=== PATIENT | male | born 1950 | race Caucasian/White ===

== ENCOUNTER 2021-11-27 10:11 | Emergency (ER) | payer OTHER, SELFPAY ==
[2021-11-27 10:41] VITALS: BP 194/72; PULSE 79; RESP 15; O2SAT 96; BMI 36.5
[2021-11-27 11:10] VITALS: BP 161/72; PULSE 75; RESP 18; O2SAT 94
--- NOTE | 2021-11-27 11:21 | XR_ITS ---
WS: [id number] XR chest 1V portable [id number] REASON FOR EXAM: sob FINDINGS: Heart and mediastinum are within normal limits. Calcified granulomatous disease in both hemithoraces. No acute pulmonary parenchymal or pleural abnormality. Mild to moderate changes of degenerative spondylosis in the mid and lower thoracic spine. XR/XR chest 1V portable [id number] IMPRESSION: No acute chest abnormality.
--- NOTE | 2021-11-27 11:21 | ED_ITS ---
HPI - Recheck/Abnormal Lab/Rx General: Chief Complaint: Recheck/Abnormal Lab/Rx Stated Complaint: high bp, high BS Time Seen by Provider: 11/27/21 10:12 Source: patient Mode of arrival: ambulatory Limitations: no limitations History of Present Illness: Patient is a nice 71-year-old male who presents [facility] ED [facility]. Patient states he recently moved to the area and had an [facility] the [facility]. [facility] checked [facility] and he thinks systolic readings were in the 160s?170s. There was report of patient feeling flushed so they sent him here for evaluation. During my initial assessment he tells me he does have a history of hypertension. He states he takes medications for this but does not remember the name of them. He states the [facility]. He thinks he probably has refills of these at home as he has two unopened boxes at home. BP during my initial assessment is 150s/70s. Patient is not having any chest pain. He does not feel hot or flushed currently. When asked if he has any physical complaints at this time he tells me that he has had intermittent pains to all 4 of his extremities for several months now. He feels like the extremities feel tight. Has not noticed any color or temperature changes. Patient also states that sometimes he will awaken from sleep feeling short of breath. He does not have any shortness of breath currently or at baseline. Patient denies orthopnea. He denies any significant extremity swelling. Patient reports a negative stress test within the past year. MD complaint: other ([facility]) Review of Systems Const: Denies: fever(s), chills, body aches, fatigue or malaise Eyes: Denies: change in vision, blurry vision or photophobia Card: Denies: chest pain, palpitations, irregular heart rhythm, edema, lightheadedness, syncope, pre-syncope, dyspnea on exertion, orthopnea, leg pain with exertion or acrocyanosis Resp: Reports: dyspnea; Denies: productive cough, non-productive cough, wheezing, hemoptysis or chest congestion GI: Denies: abdominal pain (intermittent; none currently), nausea, vomiting, diarrhea or change in bowel habits : Denies: flank pain, difficulty urinating, dysuria or hematuria Musc: Reports: extremity pain; Denies: neck pain, back pain, extremity swelling, joint pain, joint swelling, joint redness, joint warmth, joint stiffness or limited range of motion Skin/Breast: Denies: rash Neuro: Denies: headache(s), numbness in extremities, weakness in extremities, sensory changes, difficulty walking, frequent falls, dizziness, confusion or difficulty communicating thoughts PFSH ED PFSH: Medical History (Updated 11/27/21 @ 12:27 by EUSEBIA Hanna) Diabetes mellitus Hypertension Physical Exam Const: COMMON NORMALS: no acute distress, patient oriented x3, no limitations and alert GENERAL APPEARANCE: cooperative NUTRITIONAL APPEARANCE: obese ORIENTATION/CONSCIOUSNESS: Yes awake, Yes oriented to person, Yes oriented to place and Yes oriented to time HENMT: COMMON NORMALS: normocephalic and atraumatic HEAD & SCALP: normocephalic and atraumatic Resp: COMMON NORMALS: normal respiratory effort and clear to auscultation bilaterally AUSCULTATION: clear to auscultation bilaterally Cardio: COMMON NORMALS: regular rate and regular rhythm RATE: regular rate RHYTHM: regular rhythm GI: COMMON NORMALS: Normal to inspection, nondistended, normoactive bowel sounds present, Soft to palpation, non-tender, No hepatosplenomegaly present and no masses PALPATION: Yes Soft to palpation and Yes No hepatosplenomegaly present : COMMON NORMALS: Yes no CVA tenderness BLADDER/KIDNEY EXAM: Yes no CVA tenderness Back/Pelvis: COMMON NORMALS: no CVA tenderness Extremity: COMMON NORMALS: normal to inspection, full ROM, capillary refill normal, no joint enlargement, no clubbing, cyanosis or edema, no calf tenderness and no pedal edema GENERAL: Yes normal exam except as noted Neuro: OMAR COMA SCALE: document GCS findings Omar coma scale eye opening: Spontaneous [place] coma scale verbal response: Orientated Omar coma scale motor response: Obey commands [place] coma scale total score: 15 COMMON NORMALS: patient oriented x3, moves all extremities, no focal motor deficits and no sensory deficits noted SENSORIUM/ORIENTATION: Yes alert, Yes oriented to person, Yes oriented to place and Yes oriented to time Skin: COMMON NORMALS: no rashes or lesions noted GENERAL SKIN EXAM: no rashes or lesions noted Course Vital Signs: Vital signs: Vital Signs Pulse Rate 75 11/27/21 11:10 Respiratory Rate 18 11/27/21 11:10 Blood Pressure 161/72 11/27/21 11:10 Pulse Oximetry 94 11/27/21 11:10 MDM - Recheck/Abnormal Lab/Rx Medical Decision Making Patient here following an elevated blood pressure reading while at the [place] clinic. Upon arrival and during my initial assessment blood pressure 150s/70s. Not complain of feeling hot or flushed or chest pains. No headache or visual changes. He is not currently short of breath although did mention sometimes he wakes up at night feeling short of breath. CXR is normal. BNP is normal. Could be secondary to sleep apnea related to his obesity status. He had some chronic complaints of intermittent pains to his extremities. I do not see anything on his physical exam today would make me concerned for any type of emergent process. Patient states he has been taking his diabetic medications as prescribed. Recommend he continue checking his blood sugars often and keeping a log of this. Also keeping a log of his blood pressures so that has diabetic and hypertensive medications can be adjusted if needed through the [place]. Lab Data : 11/27/21 11:15 11/27/21 11:15 Radiology Impressions Chest X-Ray 11/27/21 11:21 IMPRESSION: No acute chest abnormality. Laboratory Results WBC 5.6 10^3/uL (4.0-10.0) 11/27/21 11:15 RBC 5.02 10^6/uL (4.1-5.3) 11/27/21 11:15 Hgb 15.2 g/dL (11.7-16.6) 11/27/21 11:15 Hct 45.1 % (42.0-52.0) 11/27/21 11:15 MCV 89.8 fl (80-94) 11/27/21 11:15 MCH 30.3 pg (28.0-34.0) 11/27/21 11:15 MCHC 33.7 g/dL (30.0-36.0) 11/27/21 11:15 RDW 13.2 % (12.1-15.1) 11/27/21 11:15 Plt Count 218 10^3/cmm (130-400) 11/27/21 11:15 MPV 10.4 fL (7.4-10.4) 11/27/21 11:15 Neut % (Auto) 54.3 % 11/27/21 11:15 Lymph % (Auto) 31.3 % 11/27/21 11:15 Cottle % (Auto) 7.9 % 11/27/21 11:15 Eos % (Auto) 5.0 % 11/27/21 11:15 Baso % (Auto) 1.3 % 11/27/21 11:15 Neut # (Auto) 3.05 10^3/uL (1.8-7.7) 11/27/21 11:15 Lymph # (Auto) 1.8 10^3/uL (0.8-4.8) 11/27/21 11:15 Cottle # (Auto) 0.4 10^3/uL (0.2-0.9) 11/27/21 11:15 Eos # (Auto) 0.3 10^3/uL (0.0-0.8) 11/27/21 11:15 Baso # (Auto) 0.1 10^3/uL (0.0-0.1) 11/27/21 11:15 Nucleated RBC % (auto) 0 % 11/27/21 11:15 Nucleated RBCs # 0.0 /100WBC 11/27/21 11:15 Sodium 136 mmol/L (136-145) 11/27/21 11:15 Potassium 4.2 mmol/L (3.5-5.1) 11/27/21 11:15 Chloride 101 mmol/L (98-107) 11/27/21 11:15 Carbon Dioxide 24 mmol/L (22-29) 11/27/21 11:15 Anion Gap 15.2 (5-19) 11/27/21 11:15 BUN 18 mg/dL (8-23) 11/27/21 11:15 Creatinine 0.7 mg/dL (0.7-1.2) 11/27/21 11:15 GFR Calculation 111.5 mL/min (90-130) 11/27/21 11:15 Glucose 274 mg/dL (65-115) H 11/27/21 11:15 Calculated Osmolality 294 mOsm/kg (285-295) 11/27/21 11:15 Calcium 9.8 mg/dL (8.5-10.5) 11/27/21 11:15 Total Bilirubin 0.3 mg/dL (0.15-1.2) 11/27/21 11:15 AST 25 U/L (0-40) 11/27/21 11:15 ALT 28 U/L (0-41) 11/27/21 11:15 Alkaline Phosphatase 74 IU/L (40-130) 11/27/21 11:15 NT-Pro-B Natriuret Pep 5 pg/mL (0-125) 11/27/21 11:15 Total Protein 7.6 g/dL (6.6-8.7) 11/27/21 11:15 Albumin 4.4 g/dL (3.5-5.2) 11/27/21 11:15 Globulin 3.2 g/dL (1.3-4.6) 11/27/21 11:15 Urine Color Yellow (Yellow) 11/27/21 11:55 Urine Appearance Clear (CLEAR) 11/27/21 11:55 Urine pH 5 (5-7) 11/27/21 11:55 Ur Specific [place] 1.020 (1.005-1.030) 11/27/21 11:55 Urine Protein Neg (Negative) 11/27/21 11:55 Urine Glucose (UA) 4+ (Normal) H 11/27/21 11:55 Urine Ketones 1+ (Negative) H 11/27/21 11:55 Urine Blood Neg (Negative) 11/27/21 11:55 Urine Nitrate Negative (Negative) 11/27/21 11:55 Urine Bilirubin Neg (Negative) 11/27/21 11:55 Urine Urobilinogen Norm mg/dL (Negative) 11/27/21 11:55 Ur Leukocyte Esterase Negative (Negative) 11/27/21 11:55 Discharge Plan Discharge Patient Disposition: Home Clinical Impression: Diabetes mellitus, Hypertension Condition: Stable Discharge Orders: Discharge ED (Routine); Ordered 11/27/21 Ordered By: Brittny Self Coding Level of Care Code ED Turpentine Farmer for Chg Fwd Exam Comprehensive
[2021-11-27 11:28] LABS: Basophils # 0.1 10^3/uL (0.0-0.1); Basophils % 1.3 %; Eosinophils # 0.3 10^3/uL (0.0-0.8); Hematocrit 45.1 % (42.0-52.0); Hemoglobin 15.2 g/dL (11.7-16.6); Lymphocytes # 1.8 10^3/uL (0.8-4.8); Lymphocytes % 31.3 %; Mean Corpuscular HGB Conc 33.7 g/dL (30.0-36.0); Mean Corpuscular Hemoglobin 30.3 pg (28.0-34.0); Mean Corpuscular Volume 89.8 fl (80-94); Mean Platelet Volume 10.4 fL (7.4-10.4); Monocytes # 0.4 10^3/uL (0.2-0.9); Monocytes % 7.9 %; Neutrophils # 3.05 10^3/uL (1.8-7.7); Neutrophils % 54.3 %; Nucleated Red Blood Cells % 0 %; Platelet Count 218 10^3/cmm (130-400); Red Blood Count 5.02 10^6/uL (4.1-5.3); Red Cell Distribution Width 13.2 % (12.1-15.1); White Blood Count 5.6 10^3/uL (4.0-10.0)
[2021-11-27 12:06] LABS: Add Urine Microscopic? NO; Charge for UA Resulting for Rev
[2021-11-27 12:19] LABS: Urine Appearance Clear (CLEAR); Urine Color Yellow (Yellow)
[2021-11-27 12:21] LABS: Bilirubin Urine Neg (Negative); Blood Urine Neg (Negative); Glucose Urine UA 4+ (Normal); Ketones Urine 1+ (Negative); Leukocyte Esterase Urine Negative (Negative); Nitrate Urine Negative (Negative); Protein Urine Neg (Negative); Urobilinogen Urine Norm (Negative); pH Urine 5 (5-7)
[2021-11-27 12:22] LABS: Alanine Aminotransferase 28 U/L (0-41); Albumin Level 4.4 g/dL (3.5-5.2); Alkaline Phosphatase 74 IU/L (40-130); Anion Gap 15.2 (5-19); Aspartate Amino Transferase 25 U/L (0-40); Blood Urea Nitrogen 18 mg/dL (8-23); Calcium 9.8 mg/dL (8.5-10.5); Carbon Dioxide 24 mmol/L (22-29); Chloride 101 mmol/L (98-107); Globulin 3.2 g/dL (1.3-4.6); Glomerular Filtration Rate 111.5 mL/min (90-130); Glucose 274 mg/dL (65-115); NT Pro B Type Natriuretic Pept 5 pg/mL (0-125); Osmolality Calculated 294 mOsm/kg (285-295); Potassium 4.2 mmol/L (3.5-5.1); Sodium 136 mmol/L (136-145); Total Bilirubin 0.3 mg/dL (0.15-1.2); Total Protein 7.6 g/dL (6.6-8.7)
== END 2021-11-27 12:59 | disposition home or self-care (01) ==
PROVIDERS: Emergency Provider Physician Assistant
DX: I10 Essential (primary) hypertension (principal); E11.9 Type 2 diabetes mellitus without complications
CPT/HCPCS: 71045; 80053; 81003; 83880; 85025; 99283

== ENCOUNTER → 2022-03-06 12:03 | Outpatient (BNVA) | payer OTHER, SELFPAY | PROVIDERS: PCP Nurse Practitioner; Referring Provider Nurse Practitioner; Visit Provider Internal Medicine | DX: Z79.4 Long term (current) use of insulin (principal); Z79.84 Long term (current) use of oral hypoglycemic drugs; E11.9 Type 2 diabetes mellitus without complications; E78.2 Mixed hyperlipidemia; E03.9 Hypothyroidism, unspecified | CPT/HCPCS: 99204 ==

== ENCOUNTER → 2022-07-05 10:23 | Outpatient (BNVA) | payer OTHER, SELFPAY | PROVIDERS: PCP Nurse Practitioner; Visit Provider Internal Medicine | DX: E11.9 Type 2 diabetes mellitus without complications (principal); E03.9 Hypothyroidism, unspecified; E78.2 Mixed hyperlipidemia; I10 Essential (primary) hypertension; Z79.4 Long term (current) use of insulin | CPT/HCPCS: 36415; 80053; 80061; 82044; 84439; 84443; 84480; 99214 ==

== ENCOUNTER → 2022-11-14 07:26 | Outpatient (BNVA) | payer OTHER, SELFPAY | PROVIDERS: PCP Nurse Practitioner; Visit Provider Internal Medicine | DX: E11.9 Type 2 diabetes mellitus without complications (principal); E03.9 Hypothyroidism, unspecified; E78.2 Mixed hyperlipidemia; I10 Essential (primary) hypertension; Z79.4 Long term (current) use of insulin; Z79.890 Hormone replacement therapy; Z79.84 Long term (current) use of oral hypoglycemic drugs | CPT/HCPCS: 36415; 80053; 80061; 82044; 83036; 84439; 84443; 84480; 99214 ==

== ENCOUNTER → 2022-12-03 14:01 | Outpatient (BNVA) | payer OTHER, SELFPAY | PROVIDERS: PCP Nurse Practitioner; Visit Provider Internal Medicine Cardiovascular Disease | DX: R07.9 Chest pain, unspecified (principal); E78.2 Mixed hyperlipidemia; I10 Essential (primary) hypertension; E11.9 Type 2 diabetes mellitus without complications; E03.9 Hypothyroidism, unspecified; R06.09 Other forms of dyspnea; Z79.4 Long term (current) use of insulin | CPT/HCPCS: 93005; 99204 ==

== ENCOUNTER 2022-12-27 09:19 | Outpatient (CLI) | payer OTHER, SELFPAY ==
--- NOTE | 2022-12-27 | ECG_ITS ---
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 Interpretive Statements NAME OF STUDY: EXERCISE SESTAMIBI STRESS TEST INDICATION: [Chest Pain, ] EXERCISE DATA: The patient was exercised by Elder protocol. Baseline heart rate was 70 beats per minute. Baseline blood pressure was 162/92 millimeters of mercury. Target heart rate was 126 beats per minute. Maximum heart rate achieved was 143 which was 113% of the target heart rate. Maximum blood pressure was 259/72 millimeters of mercury. Total exercise time was 6 minutes 47 seconds. Maximum METs achieved was 10.2. The reason for ending the test was maximal effort achieved. The patient complained of shortness of breath during the stress test, which then resolved at the end of the test. ELECTROCARDIOGRAM: BASELINE: Showed sinus rhythm, normal axis, no significant ST-T changes at the baseline noted. [] EXERCISE: At the peak exercise level, [] [address] depressions were noted in inferior leads. RECOVERY: During the recovery period, heart rate dropped appropriately. Persistent ST depressions were noted in inferior leads during initial part of recovery that resolved later. PVCs seen in recovery [] CONCLUSION: 1. Exercise capacity is good 2. Heart rate response was appropriate 3. Blood pressure response was hypertensive 4. Symptoms not suggestive of ischemia. 5. Electrocardiogram portion of the stress test indicative of ischemia, imaging portion needs to be correlated. 6. Nuclear scan will be documented separately. Electronically Signed On 01-10-2023 14:31:46 CDT by Pb Cooper M.D. [id number]
[2022-12-27 09:30] VITALS: BMI 34.4
--- NOTE | 2022-12-27 09:34 | NMCV_ITS ---
NM ishan perf SPECT r/s* [id number] Oliver Boyd Age: 72 Gender: M : 1950 Exam Date: 12/27/2022 09:34 Ordering Phys: Shirley Terry MD ([email or web address]) Technologist: ASH Ha Exam Location: [facility] Indications: CORONARY ANGIOPLASTY STATUS STRESS TEST Please see separate stress test report in [facility] for full findings IMAGE PROTOCOL Rest/Stress 1 Exercise Day Radiopharmaceutical Dose (mCi) Administration Site Administered by Rest: Tc-99m 10.8 IV Flakito Cole, CHAIR PAD MAKER Sestamibi Stress:Tc-99m 32.8 IV Flakito Cole, CHAIR PAD MAKER Sestamibi Rest: 27-Dec-2022 60 Discovery 630 Stress: 27-Dec-2022 30 Discovery 630 Radiopharmaceutical was injected at 90 % maximum heart rate. Images obtained in supine and prone position. SPECT RESULTS Technical Quality: Excellent Raw Data Analysis: Normal Image Corrections: No attenuation or motion correction applied Summed Stress Score: 1 Summed Rest Score: 2 Summed Difference Score: 0 PERFUSION FINDINGS SPECT images demonstrate homogeneous tracer distribution throughout the myocardium. FUNCTIONAL RESULTS (calculated via Gated SPECT) Stress Image LV EF (%): 70 Stress EDV (mL):98 TID: 0.84 Stress ESV (mL):29 FUNCTIONAL FINDINGS: There is normal left ventricular systolic function. IMPRESSIONS 1. Normal myocardial perfusion imaging with no evidence of ischemia. 2. LV systolic function is normal. Pb Cooper MD (Electronically Signed) Final Date: 28 December 2022 11:46 S
[2022-12-27 11:25] VITALS: BP 170/50; PULSE 96
== END 2022-12-27 09:20 | disposition home or self-care (01) ==
LOC: CDL 09:21
PROVIDERS: PCP Nurse Practitioner; Visit Provider Internal Medicine Cardiovascular Disease
DX: R07.9 Chest pain, unspecified (principal); Z98.62 Peripheral vascular angioplasty status
CPT/HCPCS: 36415; 78452; 93017; A9500

== ENCOUNTER → 2023-03-06 08:09 | Outpatient (BNVA) | payer OTHER, SELFPAY | PROVIDERS: PCP Nurse Practitioner; Visit Provider Nurse Practitioner Family | DX: R07.9 Chest pain, unspecified (principal); I10 Essential (primary) hypertension | CPT/HCPCS: 99213 ==

== ENCOUNTER 2023-03-27 14:35 | Outpatient (CLI) | payer OTHER, SELFPAY ==
--- NOTE | 2023-03-27 | US_ITS ---
WS: [id number] THYROID ULTRASOUND HISTORY: Elevated TSH COMPARISON: None available. Right lobe: 2.0 cm x 2.3 cm x 4.3 cm (w x ap x l). Volume: 10.0 cm3. Mildly enlarged thyroid. Thyroid is very heterogeneous with variable echogenicity throughout. Nearly isoechoic nodule in the mid gland measures 1.6 x 1.1 x 1.5 cm. Mild peripheral increased vascularity. Similar echogenicity to the adjacent gland. The side actually may be 2 separate nodules closely asso ciated with each other. Left lobe: 1.6 cm x 2.1 cm x 3.9 cm (w x ap x l). Volume: 6.9 cm3. Normal sized gland. Heterogeneous gland with fibrous septa. No mass identified or increased vasculari ty. Isthmus: 0.4 cm. IMPRESSION: 1. TI-RADS 3 RIGHT thyroid nodule. Recommend follow-up ultrasound in 1 year. Nodules only mildly susp icious. As recommended by the TI-RADS criteria FNA can be performed if the nodule is is equal or grea ter than 2.5 cm. 2. Bilateral heterogeneous thyroid. Probably due to chronic Tu's thyroiditis.
--- NOTE | 2023-03-27 14:40 | CT_ITS ---
WS: [id number] CT chest w con* [id number] HISTORY: STRESS TEST SHOWED POSSIBLE NODULE ON LUNG TECHNIQUE: Axial imaging performed through the thorax. Coronal and sagittal reformats are submitted. All CT scans at [facility] use at least one of these dose optimization techniques: automated exposure control; mA and/or kV adjustment per patient size (includes targeted exams where dose is mat ched to clinical indication); or iterative reconstruction. CONTRAST: Omnipaque 350; 100 mL IV. DLP: 744.79 mGy.cm COMPARISON: None available. Lungs and central airway: No pulmonary mass or nodule. No pneumonia. Very slight elevation of the RIG HT hemidiaphragm as compared to the LEFT. Pleura: Normal. No pleural effusion. Heart and pericardium: Heart is top normal size. Moderate amount of plaque throughout the coronary ar teries. Mediastinum and rosa maria: No mediastinum or hilar adenopathy. Vessels: Normal size aortic and pulmonary artery. No coronary artery calcifications. Chest wall and lower neck: No soft tissue masses. Upper abdomen: 2 hepatic cysts. The largest measures 17 mm in the inferior RIGHT lobe. Visualized gal lbladder is normal. Incompletely visualized low-attenuation mass in the superior pole of the LEFT kid rob. This should be reevaluated by ultrasound. Osseous structures: No destructive process. IMPRESSION: 1. No pulmonary mass or nodule. 2. No mediastinal or hilar adenopathy. 3. Moderate coronary artery plaque, greatest throughout the LEFT anterior descending. 4. Hepatic cysts. 5. Incompletely visualized low-attenuation mass LEFT kidney. This may be a cyst. Recommend ultrasound evaluation to exclude solid mass.
[2023-03-27 15:04] LABS: Blood Urea Nitrogen 19 mg/dL (8-23)
[2023-03-27] MEDS: iohexol 350 mg/mL 500 mL Btl (per mL) IV (15:07)
== END 2023-03-27 14:36 | disposition home or self-care (01) ==
PROVIDERS: PCP Nurse Practitioner; Visit Provider Nurse Practitioner
DX: R91.8 Other nonspecific abnormal finding of lung field (principal); I25.10 Atherosclerotic heart disease of native coronary artery without angina pectoris; K76.89 Other specified diseases of liver; N28.89 Other specified disorders of kidney and ureter
CPT/HCPCS: 71260; 76536; 82565; 84520; Q9967

== ENCOUNTER → 2023-04-02 09:36 | Outpatient (BNVA) | payer OTHER, SELFPAY | PROVIDERS: PCP Nurse Practitioner; Visit Provider Internal Medicine | DX: E11.9 Type 2 diabetes mellitus without complications (principal); E78.2 Mixed hyperlipidemia; E03.9 Hypothyroidism, unspecified; E04.1 Nontoxic single thyroid nodule; Z79.4 Long term (current) use of insulin; Z79.890 Hormone replacement therapy | CPT/HCPCS: 36415; 80053; 80061; 82044; 83036; 84439; 84443; 99214 ==

== ENCOUNTER → 2023-06-06 09:53 | Outpatient (BNVA) | payer OTHER, SELFPAY | PROVIDERS: PCP Nurse Practitioner; Visit Provider Podiatrist Foot & Ankle Surgery | DX: B35.1 Tinea unguium (principal); G62.9 Polyneuropathy, unspecified; E11.42 Type 2 diabetes mellitus with diabetic polyneuropathy; Z79.4 Long term (current) use of insulin | CPT/HCPCS: 11721; 99203 ==

== ENCOUNTER 2023-06-20 14:37 | Outpatient (CLI) | payer OTHER, SELFPAY ==
--- NOTE | 2023-06-20 14:45 | US_ITS ---
WS: [id number] RENAL ULTRASOUND HISTORY: MASS ON LEFT KIDNEY COMPARISON: Chest CT 03/27/2023 TECHNIQUE: 2-D and color Doppler imaging of the kidney submitted. Right kidney: 11.2 cm x 5.3 cm x 6.7 cm. Cortex: 2.0 cm Normal echogenicity with no hydronephrosis or mass. Left kidney: 11.9 cm x 5.1 cm x 6.4 cm. Cortex: 1.9 cm Normal size kidney. There is a cortical cyst in the superior pole measuring 1.7 x 2.7 x 3.3 cm. This does correspond to the indeterminate mass seen on the recent CT. No solid mass is identified. Aorta: Normal. Urinary Bladder: Normal distention. Mild prostate gland enlargement. IMPRESSION: 1. No hydronephrosis. 2. LEFT renal cyst. Cortical cyst measures 1.7 x 2.7 x 3.3 cm and corresponds to the indeterminate ma ss seen on recent CT. No follow-up necessary.
== END 2023-06-20 14:38 | disposition home or self-care (01) ==
LOC: RAD 14:37
PROVIDERS: PCP Nurse Practitioner; Visit Provider Nurse Practitioner
DX: N28.1 Cyst of kidney, acquired (principal)
CPT/HCPCS: 76770

== ENCOUNTER 2023-08-02 11:00 | Emergency (ER) | payer OTHER, SELFPAY ==
--- NOTE | 2023-08-02 11:10 | XRR_ITS ---
PROCEDURE INFORMATION: Exam: XR Chest Exam date and time: 08/02/2023 11:17 AM Age: 73 years old Clinical indication: Patient HX: SOB; Cough; Congestion; HX asthma; Diabetes TECHNIQUE: Imaging protocol: Radiologic exam of the chest. Views: 2 views. COMPARISON: CT chest w con* [id number] 03/27/2023 3:07 PM FINDINGS: Lungs: No focal consolidation. Pleural spaces: No pleural effusion. No pneumothorax. Heart/Mediastinum: No cardiomegaly. Bones/joints: No acute findings. XR/XR chest 2V* [id number] IMPRESSION: No acute findings.
--- NOTE | 2023-08-02 11:11 | W.ED.URI ---
HPI - URI/Sore Throat General: Stated Complaint: sore throat, cough, left ear pain Time Seen by Provider: 08/02/23 11:10 PFSH ED PFSH: Medical History Diabetes mellitus Hypertension Social History Smoking and tobacco/nicotine status: never used tobacco/nicotine Discharge Plan Discharge Condition: Stable Prescriptions: No Action insulin aspart U-100 [Novolog FlexPen U-100 Insulin] 100 unit/mL (3 mL) insulin pen 2 unit SUBCUT TID cholecalciferol (vitamin D3) 25 mcg (1,000 unit) capsule 25 mcg PO DAILY insulin glargine 100 unit/mL solution 35 unit SUBCUT DAILY Rx Instructions: at bedtime rosuvastatin 40 mg tablet 40 mg PO DAILY lisinopril 20 mg tablet 20 mg PO DAILY Qty: 90 3RF acetaminophen 325 mg tablet 325 mg PO QID PRN aspirin [Adult Low Dose Aspirin] 81 mg tablet,delayed release (DR/EC) 81 mg PO DAILY (DME) diabetic shoes with 3 inserts See Rx Instructions .Route .MEDSUPPLY Qty: 1 0RF Rx Instructions: As directed to the shoe guys ([facility]) Dexcom G6 Transmitter Device See Rx Instructions .ROUTE .MEDSUPPLY Qty: 3 3RF Rx Instructions: As directed levothyroxine 200 mcg tablet 200 mcg PO DAILY Qty: 90 0RF (DME) Dexcom G6 Sensor Device See Rx Instructions .ROUTE .MEDSUPPLY Qty: 9 1RF Rx Instructions: chnage every 10days Referrals: Юлия Mueller FNP [Primary Care Provider] - Coding Level of Care Code ED Boat Tester for Neving Fwalejandra
[2023-08-02 11:25] VITALS: BP 165/87; PULSE 72; RESP 16; TEMP 36.7; O2SAT 95; BMI 36.0
--- NOTE | 2023-08-02 12:01 | ED_ITS ---
HPI - URI/Sore Throat General: Chief Complaint: Upper Respiratory Infection Stated Complaint: sore throat, cough, left ear pain Time Seen by Provider: 08/02/23 11:10 Source: patient Mode of arrival: ambulatory History of Present Illness: 73-year-old male presents emergency room with complaint of generally not feeling well sore throat and little bit of left ear pain last couple of days no fever sweats or chills he has not had any diarrhea. Slight nonproductive cough. Patient is diabetic. MD elicited complaint: fever, cough and sore throat Onset (ago): day(s) Severity: mild Exacerbating factors: nothing Relieving factors: nothing Associated symptoms: Reports congestion, cough, nasal congestion, rhinorrhea and sore throat; Deny abdominal pain, change in voice, chills, chest pain, diarrhea, epistaxis, ear or mastoid pain, fever(s), headache(s), myalgias, nausea, rash, short of breath, sinus pain, stiffness or vomiting Treatments prior to arrival: none Review of Systems Const: Denies: fever(s) or chills ENMT: Reports: nasal congestion; Denies: ear or mastoid pain, epistaxis or sinus pain Card: Denies: chest pain Resp: Denies: dyspnea GI: Denies: abdominal pain, nausea, vomiting or diarrhea : Denies: dysuria, urinary frequency or urinary urgency Musc: Denies: neck pain or back pain Skin/Breast: Denies: rash Neuro: Denies: headache(s) PFS ED PFSH: Medical History Diabetes mellitus Hypertension Social History Smoking and tobacco/nicotine status: never used tobacco/nicotine Physical Exam Const: COMMON NORMALS: no acute distress GENERAL APPEARANCE: cooperative and comfortable ORIENTATION/CONSCIOUSNESS: Yes awake, Yes oriented to person, Yes oriented to place and Yes oriented to time HENMT: COMMON NORMALS: normocephalic, atraumatic, hearing grossly normal bilaterally, external ears normal, EAC's normal, TM's normal bilaterally and Normal nasal mucous membranes and turbinates present HEAD & SCALP: normocephalic and atraumatic NOSE: Normal nasal mucous membranes and turbinates present EXTERNAL EAR: Yes external ears normal EXTERNAL AUDITORY CANAL: EAC's normal TYMPANIC MEMBRANE: TM's normal bilaterally OTHER: Right mandibular posterior molar shows a significant dental caries with mild swelling of the gumline. No active drainage Neck/C-Spine: COMMON NORMALS: full ROM, no lymphadenopathy, supple and no JVD Resp: COMMON NORMALS: normal respiratory effort, No retractions, No use of accessory muscles and clear to auscultation bilaterally AUSCULTATION: clear to auscultation bilaterally Cardio: COMMON NORMALS: no JVD, regular rate, regular rhythm and No murmurs present (Cardio) RATE: regular rate RHYTHM: regular rhythm GI: COMMON NORMALS: Soft to palpation and No hepatosplenomegaly present AUSCULTATION: Yes normoactive bowel sounds PALPATION: Yes Soft to palpation, No Tenderness to palpation present (GI), No Guarding due to palpation present (GI) and Yes No hepatosplenomegaly present Extremity: COMMON NORMALS: normal to inspection, capillary refill normal, no clubbing, cyanosis or edema, no calf tenderness and no pedal edema Neuro: SENSORIUM/ORIENTATION: Yes oriented to person, Yes oriented to place and Yes oriented to time Skin: COMMON NORMALS: no rashes or lesions noted GENERAL SKIN EXAM: no rashes or lesions noted Course Vital Signs: Vital signs: Vital Signs Temperature 98.1 F 08/02/23 11:25 Pulse Rate 72 08/02/23 11:25 Respiratory Rate 16 08/02/23 11:25 Blood Pressure 165/87 08/02/23 11:25 Pulse Oximetry 95 08/02/23 11:25 Oxygen Delivery Me thod Room Air 08/02/23 11:25 MDM - URI/Sore Throat Medical Decision Making Discharge home start oral antibiotics for dental infection. Flu COVID and rapid strep all negative supportive cares follow-up with dentist for definitive care Medical Records I reviewed the patient's medical records. Lab Data I reviewed the patient's lab results. Radiology Impressions Chest X-Ray 08/02/23 11:10 IMPRESSION: No acute findings. Laboratory Results Influenza Type A Ag negative (Negative) 08/02/23 12:03 Influenza Type B Ag negative (Negative) 08/02/23 12:03 SARS-CoV-2 Ag (Rapid) negative (Negative) 08/02/23 12:03 Group A Strep Rapid Negative (Negative) 08/02/23 12:03 All radiology interpretation(s) finalized by discharge Discharge Plan Discharge Patient Disposition: Home Clinical Impression: Viral URI with cough, Dental caries Condition: Stable Prescriptions: New amoxicillin-pot clavulanate 875-125 mg tablet 1 tab PO BID Qty: 20 0RF No Action insulin aspart U-100 [Novolog FlexPen U-100 Insulin] 100 unit/mL (3 mL) insulin pen 2 unit SUBCUT TID cholecalciferol (vitamin D3) 25 mcg (1,000 unit) capsule 25 mcg PO DAILY insulin glargine 100 unit/mL solution 35 unit SUBCUT DAILY Rx Instructions: at bedtime rosuvastatin 40 mg tablet 40 mg PO DAILY lisinopril 20 mg tablet 20 mg PO DAILY Qty: 90 3RF acetaminophen 325 mg tablet 325 mg PO QID PRN aspirin [Adult Low Dose Aspirin] 81 mg tablet,delayed release (DR/EC) 81 mg PO DAILY (DME) diabetic shoes with 3 inserts See Rx Instructions .Route .MEDSUPPLY Qty: 1 0RF Rx Instructions: As directed to the shoe guys (DME) Dexcom G6 Transmitter Device See Rx Instructions .ROUTE .MEDSUPPLY Qty: 3 3RF Rx Instructions: As directed levothyroxine 200 mcg tablet 200 mcg PO DAILY Qty: 90 0RF (DME) Dexcom G6 Sensor Device See Rx Instructions .ROUTE .MEDSUPPLY Qty: 9 1RF Rx Instructions: chnage every 10days Discharge Orders: Discharge ED (Routine); Ordered 08/02/23 Ordered By: Luis Felipe Grigsby Referrals: Юлия Mueller FNP [Primary Care Provider] - Discharge Diet: Advance as tolerated Discharge Activity: Increase activity as tolerated Patient Instructions: Opioid Safety, Pain Management Activity Restrictions/Additional Instructions: Thank you for choosing [facility] for your healthcare needs today. Please realize this is an emergency room and that we are providing you with a medical screening exam and this may not be complete and all inclusive of all the testing and or work up that you may need to determine your ailment or severity of your illness. It is very important that you follow up as instructed or that you return to the Emergency Department should you have concerns or if your condition changes or worsens in any way. You are seen today complaining of upper respiratory symptoms. Swabs for flu COVID and strep were negative. On exam based on findings suspect you do have potentially infected dental carry. Started on Augmentin twice daily for 10 days follow-up with a dentist as soon as you are able. Other symptoms of your upper respiratory infection can be treated with [id number] medications as needed. Coding Level of Care Code ED Drug Room Clerk for Ezekiel Ortiz
[2023-08-02 12:30] LABS: Rapid Strep A Test Negative (Negative)
[2023-08-02 12:44] LABS: Influenza A by IFA negative (Negative); Influenza B by IFA negative (Negative); SARS Covid-2 Antigen negative (Negative)
== END 2023-08-02 13:39 | disposition home or self-care (01) ==
PROVIDERS: Internal Medicine; Emergency Provider Family Medicine; PCP Nurse Practitioner
DX: J06.9 Acute upper respiratory infection, unspecified (principal); R05.9 Cough, unspecified; K02.9 Dental caries, unspecified; Z11.52 Encounter for screening for COVID-19; Z79.82 Long term (current) use of aspirin; Z79.4 Long term (current) use of insulin; E11.9 Type 2 diabetes mellitus without complications; I10 Essential (primary) hypertension
CPT/HCPCS: 71046; 87081; 87426; 87804; 87880; 99284

== ENCOUNTER 2023-09-11 15:35 | Emergency (ER) | payer OTHER, SELFPAY ==
[2023-09-11 15:56] VITALS: BP 152/71; PULSE 74; RESP 14; TEMP 36.7; O2SAT 95; BMI 36.0
--- NOTE | 2023-09-11 16:37 | ED_ITS ---
HPI - Extremity Problem General: Chief complaint: Extremity Problem,Nontraumatic Stated complaint: foot and leg pain and redness Time Seen by Provider: 09/11/23 15:54 History of Present Illness: Patient comes in today with some complaints of discomfort to bilateral lower legs with a patchy rash. Patient appears nontoxic. Patient appears no acute distress. Patient denies any fever. Patient does have diabetes. Associated symptoms: Reports rash Review of Systems General: Reports: 10 or more systems reviewed and unremarkable except in HPI and below Skin/Breast: Reports: rash PFSH ED PFSH: Medical History Diabetes mellitus Hypertension Social History Smoking and tobacco/nicotine status: never used tobacco/nicotine Physical Exam Const: COMMON NORMALS: alert HENMT: COMMON NORMALS: normocephalic HEAD & SCALP: normocephalic Neck/C-Spine: COMMON NORMALS: full ROM Resp: COMMON NORMALS: normal respiratory effort and clear to auscultation bilaterally AUSCULTATION: clear to auscultation bilaterally Cardio: COMMON NORMALS: regular rate RATE: regular rate GI: COMMON NORMALS: Soft to palpation PALPATION: Yes Soft to palpation Extremity: COMMON NORMALS: normal to inspection Neuro: SENSORIUM/ORIENTATION: Yes alert Skin: NARRATIVE SKIN EXAM: Patient has 3 patchy areas of erythema and rough rash, small clear fluid vesicles are noted. Course Vital Signs: Vital signs: Vital Signs Temperature 98.1 F 09/11/23 15:56 Pulse Rate 74 09/11/23 15:56 Respiratory Rate 14 09/11/23 15:56 Blood Pressure 152/71 09/11/23 15:56 Pulse Oximetry 95 09/11/23 15:56 Oxygen Delivery Me thod Room Air 09/11/23 15:56 MDM - Extremity (Nontraumatic) Medical Decision Making 73-year-old male patient comes in with a itchy uncomfortable rash to the bilateral lower extremities. Patient is actually 3 patches of rash with some clear fluid vesicles. Vital signs are normal. Differential diagnosis includes not limited to stasis dermatitis, contact dermatitis, poison demetrio, neurodermatitis, dependent edema, cellulitis. I believe patient probably has some contact dermatitis he has been walking outside most likely got into some poison demetrio or other grass or weed he is sensitive to. Patient also has pets that might of brought it to him. Patient be put on some triamcinolone cream for irritation of the skin. Patient will be covered with some cephalexin for possible secondary bacterial infection. 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 Condition: Stable Prescriptions: New triamcinolone acetonide 0.1 % cream 1 applic topical BID Qty: 80 0RF cephalexin 500 mg capsule 500 mg PO BID 7 Days Qty: 14 0RF Discontinued amoxicillin-pot clavulanate 875-125 mg tablet 1 tab PO BID Qty: 20 0RF No Action insulin aspart U-100 [Novolog FlexPen U-100 Insulin] 100 unit/mL (3 mL) insulin pen 2 unit SUBCUT TID cholecalciferol (vitamin D3) 25 mcg (1,000 unit) capsule 25 mcg PO DAILY insulin glargine 100 unit/mL solution 35 unit SUBCUT DAILY Rx Instructions: at bedtime rosuvastatin 40 mg tablet 40 mg PO DAILY lisinopril 20 mg tablet 20 mg PO DAILY Qty: 90 3RF acetaminophen 325 mg tablet 325 mg PO QID PRN aspirin [Adult Low Dose Aspirin] 81 mg tablet,delayed release (DR/EC) 81 mg PO DAILY (DME) diabetic shoes with 3 inserts See Rx Instructions .Route .MEDSUPPLY Qty: 1 0RF Rx Instructions: As directed to the shoe guys (DME) Dexcom G6 Transmitter Device See Rx Instructions .ROUTE .MEDSUPPLY Qty: 3 3RF Rx Instructions: As directed levothyroxine 200 mcg tablet 200 mcg PO DAILY Qty: 90 0RF (DME) Dexcom G6 Sensor Device See Rx Instructions .ROUTE .MEDSUPPLY Qty: 9 1RF Rx Instructions: chnage every 10days Discharge Orders: Discharge ED (Routine); Ordered 09/11/23 Ordered By: Chu Johns Referrals: Юлия Mueller FNP [Primary Care Provider] - Discharge Diet: Usual diet Discharge Activity: Increase activity as tolerated Patient Instructions: Contact Dermatitis (ED) Activity Restrictions/Additional Instructions: Use triamcinolone cream 2-3 times a day to the rash to the lower extremities. Apply only to the areas of the rash. Take cephalexin 500 mg twice a day for the next 7 days for prophylaxis prevention of cellulitis. Monitor for worsening symptoms such as increased redness and swelling to the extremity, fever greater than 100.4. Coding Level of Care Code ED Loading Unit Operator Powder Charging for Ezekiel Ortiz
== END 2023-09-11 16:43 | disposition home or self-care (01) ==
PROVIDERS: Emergency Provider Nurse Practitioner Family; PCP Nurse Practitioner
DX: L25.5 Unspecified contact dermatitis due to plants, except food (principal); Z79.4 Long term (current) use of insulin; Z79.82 Long term (current) use of aspirin; E11.9 Type 2 diabetes mellitus without complications; I10 Essential (primary) hypertension
CPT/HCPCS: 99283

== ENCOUNTER → 2023-10-24 07:39 | Outpatient (BNVA) | payer OTHER, SELFPAY | PROVIDERS: PCP Nurse Practitioner; Visit Provider Internal Medicine | DX: E11.9 Type 2 diabetes mellitus without complications (principal); E78.2 Mixed hyperlipidemia; E03.9 Hypothyroidism, unspecified; E04.1 Nontoxic single thyroid nodule; Z79.4 Long term (current) use of insulin; Z79.890 Hormone replacement therapy; Z79.84 Long term (current) use of oral hypoglycemic drugs | CPT/HCPCS: 99214 ==

== ENCOUNTER 2024-02-20 10:33 | Outpatient (CLI) | payer OTHER, SELFPAY ==
[2024-02-20 11:26] LABS: Alanine Aminotransferase 27 U/L (0-41); Albumin Level 4.3 g/dL (3.5-5.2); Alkaline Phosphatase 77 U/L (40-130); Anion Gap 15.7 (5-19); Aspartate Amino Transferase 32 U/L (0-40); Blood Urea Nitrogen 17 mg/dL (8-23); Calcium 9.8 mg/dL (8.5-10.5); Carbon Dioxide 25 mmol/L (22-29); Chloride 106 mmol/L (98-107); Chol HDL Ratio 3.46 mg/dL (1.0-5.00); Cholesterol 180 mg/dL (0-200); Globulin 3.2 g/dL (1.3-4.6); Glucose 72 mg/dL (65-115); HDL Cholesterol 52 mg/dL (60-100); LDL Cholesterol Calculated 104 mg/dL (50-129); Osmolality Calculated 296 mOsm/kg (285-295); Potassium 3.7 mmol/L (3.5-5.1); Sodium 143 mmol/L (136-145); Total Bilirubin 0.3 mg/dL (0.15-1.2); Total Protein 7.5 g/dL (6.6-8.7); Triglycerides 121 mg/dL (0-150)
[2024-02-20 11:32] LABS: Creatinine Urine, Random 198 mg/dL (39-259); Microalbum Creatinine Ratio Ur 20 mg/dL (0-20); Microalbumin Random Urine 4 ug/dL (0-20)
[2024-02-20 11:34] LABS: Estmated Average Glucose 183
== END 2024-02-20 10:34 | disposition home or self-care (01) ==
LOC: LAB 10:34
PROVIDERS: PCP Nurse Practitioner; Visit Provider Internal Medicine
DX: E11.9 Type 2 diabetes mellitus without complications (principal); E78.2 Mixed hyperlipidemia
CPT/HCPCS: 36415; 80053; 80061; 82044; 83036

== ENCOUNTER → 2024-02-23 11:24 | Outpatient (BNVA) | payer OTHER, SELFPAY | PROVIDERS: PCP Nurse Practitioner; Visit Provider Internal Medicine | DX: E11.9 Type 2 diabetes mellitus without complications (principal); E78.2 Mixed hyperlipidemia; E03.9 Hypothyroidism, unspecified; E04.1 Nontoxic single thyroid nodule; Z79.4 Long term (current) use of insulin; Z79.890 Hormone replacement therapy | CPT/HCPCS: 99214 ==

== ENCOUNTER 2024-04-16 13:39 | Outpatient (CLI) | payer OTHER, SELFPAY ==
--- NOTE | 2024-04-16 13:45 | US_ITS ---
WS: [id number] THYROID ULTRASOUND HISTORY: thyroid nodule COMPARISON: 03/27/2023 Right lobe: 2.2 cm x 2.2 cm x 4.3 cm (w x ap x l). Volume: 10.3 cm3. Slightly enlarged thyroid. Reidentified is the solid mass with mild increased vascularity in the mid gland measuring 1.6 x 1.2 x 1.5 cm. This nodule has not increased in size since 03/27/2023. There are a few tiny echogenic foci present. The remaining gland is also heterogeneous. Left lobe: 2.1 cm x 2.6 cm x 3.8 cm (w x ap x l). Volume: 9.7 cm3. Mildly enlarged nodular gland. The entire gland is lobulated with a few diffusely scattered echogenic foci. Isthmus: 0.2 cm. US/US thyroid [id number] IMPRESSION: 1. TI-RADS 3; RIGHT thyroid nodule as previously described on 03/27/2023. Nodule has not significantly increased in size but this is a solid nodule. TI-RADS re commends follow-up ultrasound at 1, 3 and 5 years after the initial exam. 2-yea r follow-up recommended at this time to fulfill these criteria. 2. The remaining thyroid gland including the LEFT lobe is very heterogeneous a nd nodular and mildly enlarged. May be a goiter.
== END 2024-04-16 13:40 | disposition home or self-care (01) ==
LOC: RAD 13:40
PROVIDERS: PCP Nurse Practitioner; Visit Provider Nurse Practitioner
DX: E04.1 Nontoxic single thyroid nodule (principal); E03.9 Hypothyroidism, unspecified
CPT/HCPCS: 76536

== ENCOUNTER → 2024-06-14 10:12 | Outpatient (BNVA) | payer OTHER, MEDICARE, SELFPAY | PROVIDERS: PCP Nurse Practitioner; Visit Provider Internal Medicine | DX: E11.9 Type 2 diabetes mellitus without complications (principal); E78.2 Mixed hyperlipidemia; E03.9 Hypothyroidism, unspecified; E04.1 Nontoxic single thyroid nodule; R50.9 Fever, unspecified; I10 Essential (primary) hypertension; Z79.4 Long term (current) use of insulin; Z79.890 Hormone replacement therapy | CPT/HCPCS: 99214 ==

== ENCOUNTER → 2024-09-13 09:31 | Outpatient (BNVA) | payer OTHER, SELFPAY | PROVIDERS: PCP Nurse Practitioner; Visit Provider Internal Medicine | DX: E11.9 Type 2 diabetes mellitus without complications (principal); I10 Essential (primary) hypertension; E78.2 Mixed hyperlipidemia; E03.9 Hypothyroidism, unspecified; E04.1 Nontoxic single thyroid nodule; R50.9 Fever, unspecified | CPT/HCPCS: 36415; 80053; 80061; 82044; 83036; 99214 ==

== ENCOUNTER → 2024-09-29 09:08 | Outpatient (BNVA) | payer OTHER, SELFPAY | PROVIDERS: PCP Nurse Practitioner; Visit Provider Podiatrist Foot & Ankle Surgery | DX: E11.42 Type 2 diabetes mellitus with diabetic polyneuropathy (principal); B35.1 Tinea unguium; G62.9 Polyneuropathy, unspecified; M77.41 Metatarsalgia, right foot; M77.42 Metatarsalgia, left foot; L90.9 Atrophic disorder of skin, unspecified; Z79.4 Long term (current) use of insulin | CPT/HCPCS: 11721; 99213 ==

== ENCOUNTER → 2024-11-11 10:16 | Outpatient (BNVA) | payer OTHER, SELFPAY | PROVIDERS: PCP Nurse Practitioner; Visit Provider Internal Medicine Cardiovascular Disease | DX: R07.89 Other chest pain (principal); E03.8 Other specified hypothyroidism; E78.2 Mixed hyperlipidemia; I10 Essential (primary) hypertension; R06.09 Other forms of dyspnea; M79.89 Other specified soft tissue disorders; R63.5 Abnormal weight gain; E11.9 Type 2 diabetes mellitus without complications; Z79.4 Long term (current) use of insulin | CPT/HCPCS: 99215 ==

== ENCOUNTER → 2024-12-07 14:25 | Outpatient (BNVA) | payer OTHER, SELFPAY | PROVIDERS: PCP Nurse Practitioner; Visit Provider Internal Medicine | DX: E11.9 Type 2 diabetes mellitus without complications (principal); E04.1 Nontoxic single thyroid nodule; E03.8 Other specified hypothyroidism; I10 Essential (primary) hypertension | CPT/HCPCS: 36415; 80053; 80061; 82044; 83036; 84439; 84443; 84681; 86337; 86341 ==

== ENCOUNTER 2025-01-11 06:04 | Outpatient (CLI) | payer OTHER, SELFPAY ==
--- NOTE | 2025-01-11 11:07 | USCV_ITS ---
Oliver Boyd Age: 74 Gender: M : 1950 Exam Date: 01/11/2025 06:38 Ordering Phys: Shirley Terry MD ([email or web address]) Technologist: AV Exam Location: [facility] [place] Indication: Cp, SOB BP: 142 / 56 HR: 66 Rhythm: Sinus Technical Quality: Adequate MEASUREMENTS (Male / Female) Normal Values 2D ECHO LV Diastolic Diameter PLAX 5.3 cm 4.2 - 5.9 / 3.9 - 5.3 cm IVS Diastolic Thickness 1.5 cm 0.6 - 1.0 / 0.6 - 0.9 cm IVS Systolic Thickness 1.8 cm LVPW Diastolic Thickness 1.3 cm 0.6 - 1.0 / 0.6 - 0.9 cm LVPW Systolic Thickness 2.0 cm LVOT Diameter 2.0 cm LV Ejection Fraction 2D Teich 62.3 % LV Ejection Fraction MOD 4C 54.0 % LV Ejection Fraction MOD 2C 67.1 % LV Ejection Fraction 2C AL 68.5 % LA Diameter 4.0 cm RA Systolic Volume 4C AL 31.4 ml RA Systolic Volume 4C MOD 32.1 ml LA Sys Volume AL 39.5 cm cubed LA Sys Volume Index AL 15.8 cm cubed/m squared Aorta at Sinotubular Diameter 2.3 cm IVC Diameter 2.6 cm M-MODE LA Ao Ratio MM 1.6 AV Cusp Separation MM 1.8 cm DOPPLER AV Peak Velocity 149.0 cm/s LVOT Peak Velocity 142.0 cm/s AV Area Cont Eq vti 3.2 cm squared AV Area Cont Eq pk 3.1 cm squared MV Peak Velocity 100.0 cm/s MV Area PHT 5.0 cm squared Mitral E to A Ratio 0.9 TR Peak Velocity 72.0 cm/s TR Peak Gradient 2.1 mmHg TV Peak E Velocity 59.0 cm/s PV Peak Velocity 162.0 cm/s FINDINGS Left Ventricle Left ventricle is normal in size. LV systolic function is normal with EF of 55-60%. No regional wall motion abnormalities. Grade 1 diastolic dysfunction. Right Ventricle Normal in size and function Right Atrium Normal in size Left Atrium Normal in size Mitral Valve Mild mitral annular calcification . mild mitral regurgitation. Aortic Valve Structure normal aortic valve. No significant stenosis or regurgitation. Tricuspid Valve Insufficient TR jet to calculate RVSP. Pulmonic Valve Not well-visualized Pericardium Normal Aorta Normal in size IVC Appears to be dilated CONCLUSIONS LV systolic function is normal with EF of 55-60%. Grade 1 diastolic dysfunction. Mild mitral regurgitation. IVC appears to be dilated. Pb Cooper MD (Electronically Signed) Final Date: 26 January 2025 12:04 S
== END 2025-01-11 06:05 | disposition home or self-care (01) ==
PROVIDERS: PCP Nurse Practitioner; Visit Provider Internal Medicine Cardiovascular Disease
DX: R07.9 Chest pain, unspecified (principal); R06.02 Shortness of breath; R93.1 Abnormal findings on diagnostic imaging of heart and coronary circulation; I34.81 Nonrheumatic mitral (valve) annulus calcification; I34.0 Nonrheumatic mitral (valve) insufficiency
CPT/HCPCS: 93306

== ENCOUNTER → 2025-01-24 11:48 | Outpatient (BNVA) | payer OTHER, SELFPAY | PROVIDERS: PCP Nurse Practitioner; Visit Provider Internal Medicine | DX: E11.9 Type 2 diabetes mellitus without complications (principal); R50.9 Fever, unspecified; E04.1 Nontoxic single thyroid nodule; E03.8 Other specified hypothyroidism; E78.2 Mixed hyperlipidemia | CPT/HCPCS: 36415; 84439; 84443 ==

== ENCOUNTER → 2025-04-25 10:42 | Outpatient (BNVA) | payer OTHER, SELFPAY | PROVIDERS: PCP Nurse Practitioner; Visit Provider Internal Medicine | DX: E11.9 Type 2 diabetes mellitus without complications (principal); R50.9 Fever, unspecified; E04.1 Nontoxic single thyroid nodule; E03.8 Other specified hypothyroidism; E78.2 Mixed hyperlipidemia | CPT/HCPCS: 36415; 84439; 84443 ==